=== PATIENT | male | born 1945 | race Caucasian/White ===

== ENCOUNTER 2016-05-21 07:55 | Outpatient (CLI) | payer MEDICARE, BC | END 2016-05-21 07:56 | disposition home or self-care (01) | DX: E78.5 Hyperlipidemia, unspecified (principal); Z85.46 Personal history of malignant neoplasm of prostate; Z79.899 Other long term (current) drug therapy ==

== ENCOUNTER 2017-03-03 13:15 | Outpatient (CLI) | payer MEDICARE, BC | END 2017-03-03 13:16 | disposition home or self-care (01) | LOC: SC 13:15 | PROVIDERS: ATTEND Nurse Practitioner Family | DX: G47.33 Obstructive sleep apnea (adult) (pediatric) (principal); G47.00 Insomnia, unspecified | CPT/HCPCS: 99214; G0463; 99212 ==

== ENCOUNTER 2018-03-10 13:20 | Outpatient (CLI) | payer MEDICARE, BC | END 2018-03-10 13:21 | disposition home or self-care (01) | LOC: SC 13:20 | PROVIDERS: ATTEND Nurse Practitioner Family | DX: G47.33 Obstructive sleep apnea (adult) (pediatric) (principal) | CPT/HCPCS: 99214; G0463; 99212 ==

== ENCOUNTER 2020-11-02 14:09 | Outpatient (CLI) | payer MEDICARE, BC ==
--- NOTE | 2020-11-02 14:32 | SLEEP CARE CONSULTATION ---
Information from patient questionnaire entered by Shari Ortega. I have reviewed and concur with the information entered by Shari Ortega. This document represents the service I personally performed and the decisions made by , Faith Fu ARNP. History of Present Illness Service Date and Time: 11/02/2020 1409 Previous diagnosis: Moderate, Obstructive Sleep Apnea-Hypopnea Syndrome AHI: 23.9 (in 2006) Reason for follow up: annual (last seen 06/2019) Equipment type: CPAP Equipment obtained from: [facility] (getting supplies as needed) Mask style: Nasal Mask brand: Respironics (Dreamwear with chinstrap) Backup mask available: Yes (old mask) Last cushion change: 1 month Prior sleep studies: Yes Year and Where: 2006 - [facility] Type of Sleep Study: Polysomnography HPI additional information: RAMU MONTES was diagnosed to have moderate, AHI 23.9, obstructive sleep apnea-hypopnea syndrome and returned today for CPAP therapy annual follow-up. CPAP Compliance Data - Data Reviewed with Patient Average duration of nightly device use: 8 hr 48 min Compliance rate %: 99.4 Current pressure setting (cmH2O): 8-10 Humidity settin Heated hose settin Average residual AHI: 1.9 Average large leak: 0 secs Subjective Patient concerns: denies: aerophagia, mask discomfort, air blowing in eyes, mask leak noise, condensation in mask/hose, nasal congestion, dry mouth, nose, throat, epistaxis, other Observed to snore while using device: No Current pressure setting perceived as: comfortable On therapy, patient: reports: sleeping better, awakening more refreshed, being more awake and alert during the day, more rested overall. denies: drowsiness while driving Initial [place] Sleepiness Scale score: 11 (in 2006) Current [place] Sleepiness Scale score: 5 Allergies and Home Medications Home medication list reviewed: Yes (Rosuvastatin started last fall) Review of Systems Review of systems same as previous: Yes (no changes) Physical Exam Heart Rate: 72 O2 Saturation: 96 Height: 5 ft 7.75 in Weight: 186 lb Body Mass Index: 28.5 BMI Classification: Overweight Impression and Plan 1. Obstructive Sleep Apnea-Hypopnea Syndrome, moderate, with excellent treatment compliance and good apnea control. On CPAP therapy, the patient has better sleep quality and is more rested overall. We had some difficulties in getting the compliance information from the website today but was finally able to get the report after patient left. He is averaging over 8 hours a night and his apneas are well controlled with a residual AHI of 1.9. Patient has no complaints or concerns. He feels he has a good set up with his current mask and the pressure settings are comfortable. We will follow-up with him next year. Patient's apnea severity and rationale for treatment to reduce apnea, improve sleep quality and reduce cardiovascular and cerebrovascular events was reviewed. * Continue auto CPAP pressure at 8-10 cmH2O * Notify me if snoring with mask or feeling that the pressure is too much or too little * Attempt to lose weight * Call this office if any problems using CPAP * Return for follow up in 1 year, or sooner if concerns arise Counseling Topics: Spare mask, Weight loss health impact Visit Type: In Office Time Spent with Patient (minutes): 14 Provider Statement: I spent 100% of the Face to Face Visit with the patient with greater than 50% spent counseling the patient and coordination of care.
== END 2020-11-02 14:10 | disposition home or self-care (01) ==
LOC: SC 14:09
PROVIDERS: ATTEND Nurse Practitioner Family
DX: G47.33 Obstructive sleep apnea (adult) (pediatric) (principal); E66.3 Overweight; Z68.28 Body mass index [BMI] 28.0-28.9, adult
CPT/HCPCS: 99212; G0463

== ENCOUNTER 2022-02-25 11:10 | Outpatient (CLI) | payer MEDICARE, BC ==
--- NOTE | 2022-02-25 12:22 | SLEEP CARE CONSULTATION ---
Information from patient questionnaire entered by Aure Avlia. I have reviewed and concur with the information entered by Aure Avila. This document represents the service I personally performed and the decisions made by me, Lani Samuel MD, [facility]. History of Present Illness Service Date and Time: 02/25/2022 1110 Previous diagnosis: Moderate, Obstructive Sleep Apnea-Hypopnea Syndrome AHI: 23.9 (in 2006) Reason for follow up: annual (LAST SEEN 11/2020) Equipment type: CPAP (DREAMSTATION) Equipment obtained from: [facility] (getting supplies as needed) Mask style: Nasal Prior sleep studies: Yes Year and Where: 2006 - [facility] Sleep Type of Sleep Study: Polysomnography HPI additional information: Mr. Siegel was diagnosed to have moderate obstructive sleep apnea-hypopnea syndrome and returns today for annual follow up of CPAP therapy. The patient gets his supplies from [facility]. He continues to use the device nightly and all through the night. The compliance data show usage in 178 out of the past 180 nights, averaging 8.8 hours a night. The residual AHI is 1.5 and average air leak is 0 L/minute. The Richard Respironics DreamStation autoCPAP is set at 8 10 cmH2O. He wears a Respironics DreamWear nasal cushion mask. Sleep Study - Results Type of Sleep Study: Polysomnography Prior sleep studies: Yes Year and Where: 2006 - [facility] Sleep CPAP Compliance Data - Data Reviewed with Patient Average duration of nightly device use: 8HRSK,45MIN,1SEC Compliance rate %: 98.9 (08/26/21-02/21/22) Current pressure setting (cmH2O): 8-10 Average residual AHI: 1.5 Subjective Initial [place] Sleepiness Scale score: 11 (in 2006) Current [place] Sleepiness Scale score: 5 (02/25/2022) Allergies and Home Medications Drug allergies reviewed: Yes Home medication list reviewed: Yes Review of Systems Review of systems same as previous: Yes Physical Exam Vital signs obtained and entered by: AURE Stein MA Blood Pressure: 138/92 (left arm) Cuff size: regular Heart Rate: 75 O2 Saturation: 97 Height: 5 ft 7.75 in Weight: 197 lb Body Mass Index: 30.2 BMI Classification: Obese Impression and Plan IMPRESSION: 1. Obstructive Sleep Apnea-Hypopnea Syndrome, moderate, with the patient continuing to do well on nasal CPAP therapy. He has excellent compliance and significant clinical benefits. The current pressure is comfortable and effective. No adjustment is necessary today. PLAN: 1. Continue with autoCPAP set at 8 - 10 cm H2O. 2. Return in one year for follow up or earlier if there is any problem with the treatment. Continue with device pressure at (cmH2O): 8 - 10 Follow up with Sleep Care in: 1 year Visit Type: In Office Time Spent with Patient (minutes): 15 Provider Statement: I spent 100% of the Face to Face Visit with the patient with greater than 50% spent counseling the patient and coordination of care.
[2022-02-25 12:23] VITALS: BP 138/92
== END 2022-02-25 11:11 | disposition home or self-care (01) ==
LOC: SC 11:10
PROVIDERS: ATTEND Internal Medicine Pulmonary Disease
DX: G47.33 Obstructive sleep apnea (adult) (pediatric) (principal); E66.9 Obesity, unspecified; Z68.30 Body mass index [BMI] 30.0-30.9, adult
CPT/HCPCS: 99212; G0463

== ENCOUNTER 2022-03-04 08:00 | Outpatient (CLI) | payer MEDICARE, BC | END 2022-03-04 23:59 | disposition home or self-care (01) | LOC: LAB.N 08:00 | PROVIDERS: ATTEND Registered Nurse | DX: R30.0 Dysuria (principal) | CPT/HCPCS: 87077; 87086; 87181 ==